=== PATIENT | female | born 1960 | race Caucasian/White ===

== ENCOUNTER 2017-01-17 12:33 | Emergency (ER) | payer MEDICAID ==
[2017-01-17] MEDS ORDERED: ASPIRIN CHEW 81 MG TABLET PO STA (12:59)
[2017-01-17] MEDS ORDERED: ASPIRIN CHEW 81 MG TABLET ONE (13:01)
== END 2017-01-17 16:19 | disposition home or self-care (01) ==
DX: R07.9 Chest pain, unspecified (principal); R03.0 Elevated blood-pressure reading, without diagnosis of hypertension
CPT/HCPCS: 36415; 71020; 80053; 81001; 83690; 83880; 84484; 85025; 93005; 93010; 99281; 99284; A9270